=== PATIENT | male | born 1970 | race Caucasian/White ===

== ENCOUNTER 2018-05-10 17:42 | Emergency (ER) | payer BC ==
[2018-05-10] MEDS ORDERED: Sodium Chloride 0.9% 1,000 ML IV ONE (19:07)
[2018-05-10] MEDS ORDERED: Ketorolac 30 MG/ML SDV IVPUSH ONE (19:07)
[2018-05-10] MEDS ORDERED: Sodium Chloride 0.9% 10 ML Syringe FLUSH PRN (19:07)
--- NOTE | 2018-05-10 21:03 | EDM.PDOC ---
ED HPI GENERAL MEDICAL PROBLEM - General Chief Complaint: Genitourinary Problem Stated Complaint: MIGHT HAVE KIDNEY STONES Time Seen by Provider: 05/10/18 18:50 Source of Information: Reports: Patient History Limitations: Reports: No Limitations - History of Present Illness INITIAL COMMENTS - FREE TEXT/NARRATIVE: 47-year-old male presents for evaluation treatment of left flank and back pain. Reports that pain started this afternoon. He reports pain from his left mid back into his left flank. He is now expressing pain shooting into his groin and testicles. He reports associated symptoms of nausea. No dysuria, hematuria or vomiting. No previous surgeries to his abdomen. Patient has had kidney stones in the past. Most recent one was several years ago. Pass on its own without intervention. He feels that his symptoms feel similar to when he had kidney stones. Onset: Today Left Lower Abdomen Pain Score (Numeric/FACES): 6 - Related Data Allergies Allergy/AdvReac Type Severity Reaction Status Date / Time Penicillins Allergy Other Verified 05/10/18 17:53 tetanus and diphtheria Allergy Other Verified 05/10/18 17:53 toxoids Home Meds: Home Meds Acetaminophen/oxyCODONE [Percocet 325-5 MG] 1 tab PO Q4HR PRN #20 tab 05/10/18 [ Rx] Tamsulosin HCl [Flomax] 0.4 mg PO DAILY #7 cap.er.24h 05/10/18 [Rx] Past Medical History Cardiovascular History: Reports: Hypertension Genitourinary History: Reports: Renal Calculus Endocrine/Metabolic History: Reports: Obesity/BMI 30+ Dermatologic History: Reports: Psoriasis - Past Surgical History Head Surgeries/Procedures: Reports: Other (See Below) Social & Family History - Tobacco Use Second Hand Smoke Exposure: No - Caffeine Use Caffeine Use: Reports: Energy Drinks, Soda - Recreational Drug Use Recreational Drug Use: No ED ROS GENERAL - Review of Systems Review Of Systems: See Below Constitutional: Denies: Fever, Chills GI/Abdominal: Reports: Nausea. Denies: Vomiting : Reports: Flank Pain (left ), Pain (pain into left groin and testicles). Denies: Dysuria, Hematuria Musculoskeletal: Reports: Back Pain (left mid back) ED EXAM, RENAL/ - Physical Exam Exam: See Below Exam Limited By: No Limitations General Appearance: Alert, WD/WN, No Apparent Distress Ears: Normal External Exam Nose: Normal Inspection Throat/Mouth: Normal Inspection, Normal Lips, Normal Voice, No Airway Compromise Respiratory/Chest: No Respiratory Distress, Lungs Clear, Normal Breath Sounds Cardiovascular: Normal Peripheral Pulses, Regular Rate, Rhythm, No Murmur GI/Abdominal: Normal Bowel Sounds, Soft, Non-Tender Neurological: Alert, Oriented, Normal Cognition Psychiatric: Normal Affect, Normal Mood Skin Exam: Warm, Dry, Normal Color Course - Vital Signs Last Recorded V/S: Last Vital Signs Temp 98.0 F 05/10/18 17:55 Pulse 76 05/10/18 18:20 Resp 18 05/10/18 18:20 BP 165/84 H 05/10/18 18:20 Pulse Ox 97 05/10/18 18:20 - Orders/Labs/Meds Orders: Active Orders 24 hr Category Date Time Status Peripheral IV Care [RC] . DIRECTED Care 05/10/18 19:08 Active Abdomen Pelvis wo Cont [CT] Stat Exams 05/10/18 19:22 Taken Chest w Cont [CT] Stat Exams 05/10/18 19:56 Taken UA W/MICROSCOPIC [URIN] Stat Lab 05/10/18 18:06 Ordered Peripheral IV Insertion Adult [OM.PC] Routine Oth 05/10/18 19:07 Ordered Labs: Laboratory Tests 05/10/18 05/10/18 05/10/18 Range/Units 17:59 17:59 18:06 WBC 7.83 (4.23-9.07) K/mm3 RBC 5.16 (4.63-6.08) M/mm3 Hgb 15.5 (13.7-17.5) gm/L Hct 45.5 (40.1-51.0) % MCV 88.2 (79.0-92.2) fl MCH 30.0 (25.7-32.2) pg MCHC 34.1 (32.2-35.5) g/dl RDW Std Deviation 43.3 (35.1-43.9) fL Plt Count 207 (163-337) K/mm3 MPV 11.2 (9.4-12.3) fl Neut % (Auto) 70.1 H (34.0-67.9) % Lymph % (Auto) 21.7 L (21.8-53.1) % [place] % (Auto) 5.7 (5.3-12.2) % Eos % (Auto) 1.8 (0.8-7.0) Baso % (Auto) 0.3 (0.1-1.2) % Neut # (Auto) 5.49 H (1.78-5.38) K/mm3 Lymph # (Auto) 1.70 (1.32-3.57) K/mm3 [place] # (Auto) 0.45 (0.30-0.82) K/mm3 Eos # (Auto) 0.14 (0.04-0.54) K/mm3 Baso # (Auto) 0.02 (0.01-0.08) K/mm3 Sodium 141 (136-145) mEq/L Potassium 4.1 (3.5-5.1) mEq/L Chloride 105 (98-107) mEq/L Carbon Dioxide 25 (21-32) mEq/L Anion Gap 15.1 H (5-15) BUN 11 (7-18) mg/dL Creatinine 1.4 H (0.7-1.3) mg/dL Est Cr Clr Drug Dosing 74.21 mL/min Estimated GFR (MDRD) 54 (>60) mL/min BUN/Creatinine Ratio 7.9 L (14-18) Glucose 163 H (74-106) mg/dL Calcium 8.9 (8.5-10.1) mg/dL Total Bilirubin 0.7 (0.2-1.0) mg/dL AST 23 (15-37) U/L ALT 59 (16-63) U/L Alkaline Phosphatase 79 (46-116) U/L C-Reactive Protein 0.6 (<1.0) mg/dL Total Protein 8.0 (6.4-8.2) g/dl Albumin 4.0 (3.4-5.0) g/dl Globulin 4.0 gm/dL Albumin/Globulin Ratio 1.0 (1-2) Urine Color Yellow (Yellow) Urine Appearance Clear (Clear) Urine pH 6.0 (5.0-8.0) Ur Specific [place] > or = 1.030 (1.005-1.030) Urine Protein Trace H (Negative) Urine Glucose (UA) Negative (Negative) Urine Ketones Negative (Negative) Urine Occult Blood 2+ H (Negative) Urine Nitrite Negative (Negative) Urine Bilirubin Negative (Negative) Urine Urobilinogen 1.0 (0.2-1.0) Ur Leukocyte Esterase Negative (Negative) Urine RBC 5-10 H (0-5) /hpf Urine WBC 0-5 (0-5) /hpf Ur Epithelial Cells Not seen (0-5) /hpf Urine Bacteria Rare (FEW) /hpf Urine Mucus Few (FEW) /hpf Meds: Medications Discontinued Medications Generic Name Dose Route Start Last Admin Trade Name Freq PRN Reason Stop Dose Admin Sodium Chloride 1,000 mls @ 999 mls/hr 05/10/18 19:07 05/10/18 19:16 Normal Saline IV 05/10/18 20:07 999 mls/hr ONETIME ONE Administration Iopamidol 80 ml 05/10/18 22:37 05/10/18 22:37 Isovue-300 (61%) IVPUSH 05/10/18 22:38 80 ml ONETIME ONE Administration Ketorolac Tromethamine 30 mg 05/10/18 19:07 05/10/18 19:17 Toradol IVPUSH 05/10/18 19:08 30 mg ONETIME ONE Administration Sodium Chloride 10 ml 05/10/18 19:07 05/10/18 19:18 Saline Flush FLUSH 10 ml ASDIRECTED PRN Administration Keep Vein Open - Radiology Interpretation Free Text/Narrative:: CT scan of the abdomen and pelvis without contrast impression per vrad: 4mm obstructing stone at the left ureterovesical junction. Small nonobstructing stones are seen in both kidneys. CT ofthe chest with IV contrast (this test was ordered in error) impression per vrad: 3.9 cm left thyroid mass. If clinically indicated this can be further evaluated with utrasound. Prominent mediastinal fat and left epicardial fat pad. No acute cardiopulmonary abnormality. - Re-Assessments/Exams Free Text/Narrative Re-Assessment/Exam: 05/10/18 20:46 I reviewed the labs and imaging with the patient. I'll start him on Flomax and pain pills as needed. He reports adequate pain relief with the Toradol. Plan will be to discharge home at this time. Follow up with urologist if the stone does not pass. He is not interested and straining his urine. The CT of the chest was entered in erro. This was mostly a test for another patient. By the time the mistake was realized the report for his CT had actually come back. Incidentally we found a thyroid mass on the left side of his thyroid causing slight tracheal deviation. I informed him of this and I will have him follow-up with family medicine. He will need an ultrasound and possibly a biopsy. He will also need lab studies. Recommendations for family med given. Discharge instructions as documented. Departure - Departure Time of Disposition: 20:58 Disposition: Home, Self-Care 01 Condition: Fair Clinical Impression: Thyroid mass, Nephrolithiasis - Discharge Information *PRESCRIPTION DRUG MONITORING PROGRAM REVIEWED*: No *COPY OF PRESCRIPTION DRUG MONITORING REPORT IN PATIENT MATTHEW: No Prescriptions: Acetaminophen/oxyCODONE [Percocet 325-5 MG] 1 tab PO Q4HR PRN #20 tab PRN Reason: Pain Tamsulosin HCl [Flomax] 0.4 mg PO DAILY #7 cap.er.24h Instructions: Kidney Stones, [id number] Referrals: PCP,None [Primary Care Provider] - Lore Jaffe MD [Physician] - Forms: ED Department Discharge Additional Instructions: Take the Flomax as prescribed. 1 tab daily until stone passes. Make sure you are drinking plenty of fluids. May take [id number] ibuprofen 600 or 800 mg every 6 hours. Do not take more than 3200 mg of ibuprofen in 1 day. For pain not relieved by ibuprofen you may take Percocet 1 or 2 tabs every 4-6 hours. Percocet is habit-forming, take as little as needed to control your pain. Do not drive or operate machinery within 10 hours of taking Percocet. If your stone does not pass on its own follow-up with urology. Recommend Dr. Yang in [place]. Call [phone] to schedule with him. Follow-up with family medicine for evaluation of the thyroid mass. you will need thyroid studies done and ultrasound. Here [place] recommend Dr. Jaffe at the [facility]. Call [phone] schedule with her. Please return to the ER if your symptoms change or worsen. - My Orders Last 24 Hours: My Active Orders 05/10/18 19:07 Peripheral IV Insertion Adult [OM.PC] Routine 05/10/18 19:08 Peripheral IV Care [RC] . DIRECTED 05/10/18 19:22 Abdomen Pelvis wo Cont [CT] Stat 05/10/18 19:56 Chest w Cont [CT] Stat - Assessment/Plan Last 24 Hours: My Active Orders 05/10/18 19:07 Peripheral IV Insertion Adult [OM.PC] Routine 05/10/18 19:08 Peripheral IV Care [RC] . DIRECTED 05/10/18 19:22 Abdomen Pelvis wo Cont [CT] Stat 05/10/18 19:56 Chest w Cont [CT] Stat
[2018-05-10] MEDS ORDERED: Iopamidol 612 MG/ML 100 ML Bottle IVPUSH ONE (22:37)
--- NOTE | 2018-05-13 08:24 | CT ---
CT abdomen and pelvis Technique: Multiple axial sections were obtained from above the dome of the diaphragm inferiorly through the pubic symphysis. Intravenous and oral contrast was not utilized. Study has been performed as a ureteral stone protocol. Comparison: No prior CT exam is available of the abdomen and pelvis. Findings: Two small calcifications seen within the mid to upper left kidney compatible with nonobstructing calculi. These measure less than 4 mm in size. Single nonobstructing stone noted within the mid to lower right kidney measuring less than 4 mm in size. Left ureter is mildly prominent with mild surrounding inflammatory change. These findings are caused by an obstructing distal left ureteral stone measuring about 3 mm. This occurs slightly proximal to the UVJ. No other abnormal calcifications are seen along the course of the ureters. Visualized lung bases are clear. Fatty infiltration is noted within the liver. Spleen appears within normal limits. Adrenal glands show no nodule. Pancreas is within normal limits. Gallbladder contains no calcified gallstones. Aorta shows no aneurysmal dilatation. No retroperitoneal adenopathy or mesenteric abnormalities are seen. No pelvic mass or adenopathy is seen. Slight degenerative change noted within the spine. Impression: 1. Several nonobstructing calculi within both kidneys measuring less than 4 mm in size. 2. Slightly prominent left ureter caused by an obstructing distal left ureteral stone measuring about 3 mm in size. This is located slightly proximal to the UVJ. 3. Other incidental findings as noted above. Diagnostic code #3 I agree with preliminary report from [facility], finalized at 05/10/18, 9:29 PM Central Time
--- NOTE | 2018-05-13 08:24 | CT ---
CT chest Technique: Multiple axial sections were obtained from above the lung apices inferiorly through the lung bases. Intravenous contrast was utilized. Comparison: No prior chest imaging. Findings: Left-sided thyroid nodule appears to be present measuring up to 3.9 cm. Slightly prominent upper mediastinal fat is seen which is a normal variant. No mediastinal or hilar adenopathy is seen. No pericardial thickening is seen. Scattered degenerative change is noted within the spine. Lungs are clear. Small subpleural nodule is noted within the left lung base measuring 4 mm. Lungs otherwise are clear. No pleural effusions are seen. Bone window settings were reviewed which show no discrete rib abnormality. Degenerative endplate spurring is noted within the spine. Impression: 1. 3.9 cm left-sided thyroid nodule. Ultrasound could be considered to further evaluate. 2. Small subpleural nodule within the left lung base measuring 4 mm which is most likely incidental. 3. Other incidental findings as noted above. Nothing acute is appreciated. Diagnostic code #3 I agree with preliminary report from [facility], finalized at 05/10/18, 9:42 PM Central Time
== END 2018-05-10 21:16 | disposition home or self-care (01) ==
LOC: JD.ED 17:42
DX: N20.2 Calculus of kidney with calculus of ureter (principal); E07.9 Disorder of thyroid, unspecified; Z88.0 Allergy status to penicillin; Z88.7 Allergy status to serum and vaccine; Z87.442 Personal history of urinary calculi
CPT/HCPCS: 36415; 71260; 74176; 80053; 81001; 85025; 86140; 96361; 96374; 99284; J1885; J7040; J7050; Q9967